=== PATIENT | female | born 1950 | race Caucasian/White ===

== ENCOUNTER → 2016-09-06 | Outpatient (CLI) | payer OTHER | LOC: FIMAGING 10:03 | PROVIDERS: ATTEND Internal Medicine Cardiovascular Disease | DX: R60.9 Edema, unspecified (principal); R06.09 Other forms of dyspnea; I10 Essential (primary) hypertension ==

== ENCOUNTER → 2017-03-15 | Outpatient (CLI) | payer OTHER | LOC: BMCIMAGING 14:22 | DX: Z12.31 Encounter for screening mammogram for malignant neoplasm of breast (principal) | CPT/HCPCS: G0202 ==